=== PATIENT | male | born 1965 | race Two or more races ===

== ENCOUNTER 2024-04-11 17:36 | Emergency (ER) | payer MEDICAID, OTHER ==
[~2024-04-11] VITALS: Ht 177.8 cm; Wt 99.0 kg
--- NOTE | 2024-04-11 18:25 | ECG ---
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
[2024-04-11] MEDS ORDERED: DEXTROSE (50%) 50ML SYRG IV PRN (18:30)
--- NOTE | 2024-04-11 18:46 | ED.PDOC ---
History of Present Illness HPI Comments Cally Ibrahim is a 59-year-old male patient who presents to ED with chief complaint of dizziness associated with hypertension (210 mmHg), dyspnea in variable functional class and vomiting. Patient says that he is noncompliant with medication, has not been taking antihypertensive medication. He lives in assisted living facility, where they measures his blood pressure. Denies palpitation, syncope, fever, chills, chest pain, nausea, diarrhea, abdominal pain, dysuria, recent travel, sick contacts and motor or sensory deficits. Past medical history: Hypertension, diabetes, dyslipidemia, sick strokes with abnormal gait sequela walker/cane to ambulate, asthma, questionable BPH, forearm injury status postop, osteoarthritis Surgical history: Abdominal surgery due to forearm injury Family history: Mother has hypertension Social history: Lives in assisted living facility in [place]. He is a current smoker (approximately 60 pack-year history of smoking) currently he smokes five cigarettes a day. Ex ethanol abuse (12 beers per day) he stopped two years ago. Allergies: Denies Home medication metformin, aspirin, atorvastatin, does not recall antihypertensive medication. Chief Complaint: Dizziness Time Seen by MD: 17:43 Allergies: Coded Allergies: NO KNOWN ALLERGIES (Unverified , 04/11/24) Physical Exam General Appearance: No Apparent Distress, Normal HEENT: Normal ENT Inspection, Pharynx Normal, TMs Normal Neck: Full Range of Motion, Non-Tender, Normal, Normal Inspection Respiratory: Chest Non-Tender, Lungs Clear, No Accessory Muscle Use, No Respiratory Distress, Normal Breath Sounds Cardiovascular: No Edema, No JVD, No Murmur, No Gallop, Normal Peripheral Pulses, Regular Rate/Rhythm Breast Exam: Deferred Gastrointestinal: No Organomegaly, Non Tender, No Pulsatile Mass, Normal Bowel Sounds, Soft Genitalia: Deferred Pelvic: Deferred Rectal: Deferred Extremities: No calf tenderness, Normal capillary refill, Normal inspection, Normal range of motion, Non-tender, No pedal edema Neurologic: Alert, guest services II-XII nml as Tested, No Motor Deficits, Normal Affect, Normal Mood, No Sensory Deficits Cerebellar Function: Normal Reflexes: Normal Skin: Dry, Normal Color, Warm Lymphatic: No Adenopathy Was a procedure done? Was a procedure done?: No EKG EKG : Comments Sinus tachycardia with probable left atrial hypertrophy, flattened lateral T- waves Differential Dx Considerations may include: Hypertensive urgency, noncompliance, stroke, migraine X-Ray, Labs, Meds, VS Vital Signs Date Time Temp Pulse Resp B/P (MAP) Pulse Ox O2 Delivery O2 Flow Rate FiO2 04/11/24 20:50 98.4 97 16 176/119 (138) 94 98.4 04/11/24 20:50 97 16 94 Room Air* 0 21 04/11/24 19:01 172/114 04/11/24 18:38 98.6 95 20 186/126 (146) 98 04/11/24 18:19 134 Lab Test 04/11/24 21:17 04/11/24 19:15 04/11/24 18:57 04/11/24 18:10 Range/Units Urine Color Light-yellow Yellow Urine Clarity Clear Clear Urine pH 5.5 5.0-9.0 Urine Specific [place] 1.022 1.001-1.035 Urine Protein Negative Negative Urine Ketones Negative Negative Urine Blood Negative Negative /uL Urine Nitrite Negative Negative Urine Bilirubin Negative Negative Urine Urobilinogen 2 H Negative mg/dL Urine Leukocyte Esterase Negative Negative /uL Urine RBC 1 0 - 3 /hpf Urine WBC 1 0 - 3 /hpf Urine Squamous Epithelial Cells Few <5 /hpf Urine Bacteria None seen None Seen /hpf Urine Mucus Few None Seen Urine Glucose 3+ H Normal mg/dL Urine Opiates Screen Neg NEGATIVE Urine Fentanyl Screen Neg NEGATIVE Urine Barbiturates Screen Neg NEGATIVE Urine Phencyclidine Screen Neg NEGATIVE Urine Amphetamines Screen Neg NEGATIVE Urine Benzodiazepines Screen Neg NEGATIVE Urine Cocaine Screen Neg NEGATIVE Urine Cannabinoids Screen Neg NEGATIVE White Blood Count 10.2 4.4-10.8 10^3/uL Red Blood Count 4.70 4.5-5.90 10^6/uL Hemoglobin 13.6 13.5-17.5 g/dL Hematocrit 41.2 41.0-53.0 % Mean Corpuscular Volume 87.7 80.0-100.0 fL Mean Corpuscular Hemoglobin 29.1 28.0-32.0 pg Mean Corpuscular Hemoglobin Concent 33.1 32.0-36.0 g/dL Red Cell Distribution Width 13.4 11.8-14.3 % Platelet Count 279 140-450 10^3/uL Mean Platelet Volume 7.6 6.9-10.8 fL Neutrophils (%) (Auto) 62.8 37.0-80.0 % Lymphocytes (%) (Auto) 29.8 10.0-50.0 % Monocytes (%) (Auto) 6.2 0.0-12.0 % Eosinophils (%) (Auto) 0.7 0.0-7.0 % Basophils (%) (Auto) 0.5 0.0-2.0 % Neutrophils # (Auto) 6.4 1.6-8.6 10 ^3/uL Lymphocytes # (Auto) 3.0 0.4-5.4 10 ^3/uL Monocytes # (Auto) 0.6 0-1.3 10 ^3/uL Eosinophils # (Auto) 0.1 0-0.8 10 ^3/uL Basophils # (Auto) 0.1 0-0.2 10 ^3/uL Nucleated Red Blood Cells 0.0 % Prothrombin Time 11.1 9.3-11.8 sec Prothrombin Time INR 1.05 0.9-1.15 Activated Partial Thromboplast Time 25.6 24.5-34.5 SEC Sodium Level 140 136-145 mmol/L Potassium Level 3.4 L 3.5-5.1 mmol/L Chloride Level 104 98-107 mmol/L Carbon Dioxide Level 29 20-31 mmol/L Anion Gap 7 5-15 Blood Urea Nitrogen 15 9-23 mg/dL Creatinine 1.25 0.700-1.30 mg/dL Glomerular Filtration Rate Calc 66 >90 mL/min BUN/Creatinine Ratio 12.0 10.0-20.0 Serum Glucose 132 H 74-106 mg/dL Lactic Acid Level 1.4 0.4-2.0 mmol/L Calcium Level 10.1 8.7-10.4 mg/dL Total Bilirubin 0.7 0.2-1.0 mg/dL Aspartate Amino Transferase (AST) 11 L 13-40 U/L Alanine Aminotransferase (ALT) 17 7-40 U/L Alkaline Phosphatase 87 46-116 U/L Total Protein 7.5 5.7-8.2 g/dL Albumin 4.6 3.2-4.8 g/dL Thyroid Stimulating Hormone (TSH) 1.48 0.55-4.78 uIU/mL POC Glucose 139 H 156 H 70-106 mg/dl Current Medications Medications (Trade) Dose Ordered Sig/Don Route Start Time Stop Time Status Last Admin Amlodipine Besylate (Norvasc Tablet) 10 mg ONCE ONCE PO 04/11/24 18:30 04/11/24 18:46 DC 04/11/24 19:01 Insulin Human Regular (InsuLIN R) ACHS SC 04/11/24 22:00 04/11/24 19:00 X-Ray, Labs, Meds, VS Comment Reviewed laboratory results, chest x-ray, and urine, all within normal limits. Time of 1ST Reevaluation: 21:33 Reevaluation 1ST: Improved Patient Education/Counseling: Diagnosis, Treatment, Prognosis, Need For Follow Up Family Education/Counseling: Diagnosis, Treatment, Prognosis, Need For Follow Up Departure 1 Departure Time of Disposition: 21:33 Impression: Primary Impression: Hypertensive urgency Disposition: 01 HOME / SELF CARE / HOMELESS Condition: Stable Additional Instructions: Reviewed vital signs, laboratory results, urine analysis and chest x-ray, all within normal limits. Patient responded positively to amlodipine 10 mg p.o. daily. We will indicate amlodipine 10 mg p.o. daily and hydrochlorothiazide 12.5 mg p.o. daily Patient hemodynamically stable, asymptomatic, in condition to be discharged home. Was granted under optimal medical therapy (amlodipine and hydrochlorothiazide), gave her advice on healthy lifestyle habits (avoid tobacco abuse) and follow up with PCP. Critical Care Note Critical Care Time?: No Stability Stability form required: No Heart Score Heart Score: Heart Score Response (Comments) Value History N/A 0 EKG N/A 0 Age N/A 0 Risk Factors N/A 0 Troponin N/A 0 Total 0 BALBIR MARES RESIDENT Apr 11, 2024 18:46
[2024-04-11] MEDS: InsuLIN REG 1unit/0.01ml Soln (100units/ml) SC SCH (19:00)
[2024-04-11] MEDS: amLODIPine BESYLATE 5 MG TAB PO ONE (19:01)
--- NOTE | 2024-04-11 19:02 | DVH ---
CHEST RADIOGRAPH Indication: SOB Technique: Single frontal view of the chest was obtained COMPARISON: None FINDINGS: Lines and Tubes: None Lungs: Clear Pleura: No effusion. No pneumothorax. Cardiomediastinal contours: Unremarkable Bones: Unremarkable IMPRESSION: 1. No acute disease.
[2024-04-11 19:28] LABS: Basophils # (auto) 0.1 10 ^3/uL (0-0.2); Basophils % (auto) 0.5 % (0.0-2.0); Eosinophils # (auto) 0.1 10 ^3/uL (0-0.8); Eosinophils % (auto) 0.7 % (0.0-7.0); Hematocrit 41.2 % (41.0-53.0); Hemoglobin 13.6 g/dL (13.5-17.5); Lymphocytes % (auto) 29.8 % (10.0-50.0); Mean Corpuscular Hemoglobin 29.1 pg (28.0-32.0); Mean Corpuscular Hgb Conc. 33.1 g/dL (32.0-36.0); Mean Corpuscular Volume 87.7 fL (80.0-100.0); Monocytes # (auto) 0.6 10 ^3/uL (0-1.3); Monocytes % (auto) 6.2 % (0.0-12.0); Neutrophils # (auto) 6.4 10 ^3/uL (1.6-8.6); Neutrophils % (auto) 62.8 % (37.0-80.0); Platelet Count (auto) 279 10^3/uL (140-450); Red Cell Distribution Width 13.4 % (11.8-14.3); White Blood Cell 10.2 10^3/uL (4.4-10.8)
[2024-04-11 19:55] LABS: INR 1.05 (0.9-1.15); Partial Thromboplastin Time 25.6 SEC (24.5-34.5); Prothrombin Time 11.1 sec (9.3-11.8)
[2024-04-11 20:19] LABS: Alanine Aminotransferase 17 U/L (7-40); Albumin 4.6 g/dL (3.2-4.8); Alkaline Phosphatase 87 U/L (46-116); Anion Gap 7 (5-15); Bilirubin, Total 0.7 mg/dL (0.2-1.0); Blood Urea Nitrogen 15 mg/dL (9-23); Calcium 10.1 mg/dL (8.7-10.4); Carbon Dioxide 29 mmol/L (20-31); Chloride 104 mmol/L (98-107); Sodium 140 mmol/L (136-145); Total Protein 7.5 g/dL (5.7-8.2)
[2024-04-11 20:23] LABS: Aspartate Aminotransferase 11 U/L (13-40); Glucose 132 mg/dL (74-106); Potassium 3.4 mmol/L (3.5-5.1)
[2024-04-11 20:50] VITALS: PULSE 97; RESP 16; TEMP 98.4; O2SAT 94
[2024-04-11] MEDS: POTASSIUM EFFERVESENT TAB 25 MEQ PO ONE (21:01)
[2024-04-11 21:13] LABS: Urine Bacteria None Seen /hpf (None Seen); Urine Blood Negative /uL (Negative); Urine Clarity Clear (Clear); Urine Color Light-Yellow (Yellow); Urine Mucus FEW (None Seen); Urine Protein, UAD Negative (Negative); Urine Specific Gravity 1.022 (1.001-1.035); Urine Squamous Epithelial Cell FEW /hpf (<5); Urine Urobilinogen 2 mg/dL (Negative); Urine WBC 1 /hpf (0 - 3); Urine pH 5.5 (5.0-9.0)
[2024-04-11 21:20] LABS: Amphetamine Screen, Urine Neg (NEGATIVE); Barbiturate Scree,Urine Neg (NEGATIVE); Benzodiazephine Screen, Urine Neg (NEGATIVE); Cannabinoid Screen, Urine Neg (NEGATIVE); Cocaine Screen, Urine Neg (NEGATIVE); Opiate Scree,Urine Neg (NEGATIVE); Phencyclidine Screen, Urine Neg (NEGATIVE)
[2024-04-11 21:29] VITALS: BP 168/104; PULSE 88; RESP 16; O2SAT 96
[2024-04-11] MEDS ORDERED: HYDR12.55 PO (21:37)
[2024-04-11] MEDS ORDERED: AMLO1TAB22 PO (21:37)
[2024-04-11] MEDS ORDERED: ACCU-CHEK COMFORT CURVE STRIP VI SCH (22:00)
== END 2024-04-11 21:40 | disposition home or self-care (01) ==
LOC: ER 17:36
DX: I16.0 Hypertensive urgency (principal); E11.9 Type 2 diabetes mellitus without complications; E78.5 Hyperlipidemia, unspecified; J45.909 Unspecified asthma, uncomplicated; F17.210 Nicotine dependence, cigarettes, uncomplicated; Z98.890 Other specified postprocedural states; Z88.6 Allergy status to analgesic agent; Z79.899 Other long term (current) drug therapy
CPT/HCPCS: 36415; 71045; 80053; 80307; 81001; 82962; 83605; 84443; 85025; 85610; 85730; 93005; 96372; 99285; J1815

== ENCOUNTER 2024-06-02 11:24 | Emergency (ER) | payer MEDICAID ==
[~2024-06-02] VITALS: Ht 177.8 cm; Wt 96.0 kg
[~2024-06-02 11:24] MED LIST: AMLO1TAB22 PO; HYDR12.55 PO
--- NOTE | 2024-06-02 11:45 | ECG ---
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
[2024-06-02 12:02] LABS: Basophils # (auto) 0 10 ^3/uL (0-0.2); Basophils % (auto) 0.5 % (0.0-2.0); Eosinophils # (auto) 0 10 ^3/uL (0-0.8); Eosinophils % (auto) 0.3 % (0.0-7.0); Hematocrit 41.1 % (41.0-53.0); Hemoglobin 13.3 g/dL (13.5-17.5); Lymphocytes % (auto) 21.7 % (10.0-50.0); Mean Corpuscular Hemoglobin 28.7 pg (28.0-32.0); Mean Corpuscular Hgb Conc. 32.3 g/dL (32.0-36.0); Monocytes # (auto) 0.4 10 ^3/uL (0-1.3); Monocytes % (auto) 4.2 % (0.0-12.0); Neutrophils # (auto) 6.8 10 ^3/uL (1.6-8.6); Neutrophils % (auto) 73.3 % (37.0-80.0); Platelet Count (auto) 267 10^3/uL (140-450); Red Blood Cells 4.62 10^6/uL (4.5-5.90); White Blood Cell 9.2 10^3/uL (4.4-10.8)
[2024-06-02 12:22] LABS: Chloride 103 mmol/L (98-107); Potassium 3.8 mmol/L (3.5-5.1); Sodium 138 mmol/L (136-145)
[2024-06-02 12:23] LABS: Anion Gap 10 (5-15); Carbon Dioxide 25 mmol/L (20-31)
[2024-06-02 12:28] LABS: Blood Urea Nitrogen 10 mg/dL (9-23); Glucose 303 mg/dL (74-106)
[2024-06-02 12:56] VITALS: PULSE 87; RESP 15; TEMP 97.6; O2SAT 95
[2024-06-02] MEDS: HYDROcodone-ACET 10/325MG TAB PO ONE (13:09)
--- NOTE | 2024-06-02 13:38 | DVH ---
Procedure: CT CHEST WITHOUT CONTRAST Reason for study/Clinical History: Chest wall pain s/p fall trauma Comparison Study: Chest radiograph performed 04/11/2024. Exam Date: 06/02/2024 12:57 PM TECHNIQUE: Multidetector CT of the chest was performed from the lung apices to the upper abdomen with out the use of intravenous contract. Axial, coronal and sagittal multiplanar reformats were performed . Radiation Dose Information: CT Dose: CTDI volume is 14.97 mGy. Dose-length product is 535.18 mGy*cm The dose indicators for CT are the volume Computed Tomography (CT) Dose Index (CTDIvol) and the Dose Length Product (DLP), and are measured in units of mGy and mGy-cm, respectively. These indicators are not patient dose, but values generated from the CT scanner acquisition factors. The report includes radiation exposure data for exposures received during this examination. FINDINGS: Lower neck: Enlarged multinodular thyroid. Lungs /pleura: No focal consolidation, pleural effusion or pneumothorax. Central airways: Patent. Heart/Vascular Structures: Normal heart size. No pericardial effusion. Normal caliber thoracic aorta and main pulmonary artery. Lymph Nodes: No adenopathy Musculoskeletal: No acute osseous abnormality. Soft tissues: Bilateral gynecomastia. Upper abdomen: Limited portions of the upper abdomen shows low attenuating liver parenchyma. IMPRESSION: 1. No acute intrathoracic abnormality. 2. Enlarged multinodular thyroid. Recommend further evaluation with thyroid ultrasound. 3. Hepatic steatosis. 4. Gynecomastia. Radiation optimization: All CT scans at this facility use at least one of these dose optimization jayro hniques: automated exposure control mA and/or kV adjustment per patient size (includes targeted exam s where dose is matched to clinical indication) or iterative reconstruction.
--- NOTE | 2024-06-02 15:14 | ED.PDOC ---
Back pain HPI HPI Comments 59y M who presents to the ED for chief complaint of chest wall pain. Pt states he is resident at care facility for substance abuse and was standing outside in smoking area and had mechanical onto wooden chair which hit his chest wall area on the L side. Pt states he had history of 6 prior strokes and states he has residual equilibrium deficits and states he lost is equilibrium with mechanical fall onto wooden chair. Pt states he has been having L sided chest wall pain since and states he has been having pain with taking deep breaths but otherwise denies any head injury or associated loss of consciousness. Pt in the ED, states the pain is 10/10, constant, non-radiating, with no associated exacerbating or relieving factors. Pt otherwise denies shortness of breath, diaphoresis, palpitations, nausea, vomiting, cough, chills, headache or dizziness. Pt in the ED, states he has history of DM, HTN, and prior PA. Pt states due to chest wall injury suffered today, he did not take any of his medications and came to the ED instead. Pt in the ED, has elevated blood pressure of 198/113 but otherwise has temp of 98.3 F and RR of 18 and 02 sat of 95% on room air. Chief Complaint: Chest Wall Injury Time Seen by MD: 15:09 Primary Care Provider: UNKNOWN Reviewed Notes: Medications, Allergies Allergies: Coded Allergies: NO KNOWN ALLERGIES (Unverified , 04/11/24) Home Meds Active Scripts Hydrochlorothiazide (Hydrochlorothiazide) 12.5 Mg Tab, 12.5 MG PO DAILY for 30 Days, #30 TAB Prov:BALBIR MARES RESIDENT 04/11/24 Amlodipine Besylate (Amlodipine Besylate) 5 Mg Tab, 1 TAB PO DAILY for 30 Days, #30 TAB 5 Refills Prov:BALBIR MARES RESIDENT 04/11/24 Information Source: Patient Mode of Arrival: Wheelchair Brought in by: friend Past Medical History PAST MEDICAL HISTORY: CVA, DM, HTN, PA Surgical History: Unknown Family History Family History: Unknown Social History Smoker: Unknown Alcohol: Unknown Drugs: Unknown Lives In: Assisted Care Constitutional: denies: chills, diaphoresis, fatigue, fever, malaise, sweats, weakness, others EENTM: denies: blurred vision, double vision, ear bleeding, ear discharge, ear drainage, ear pain, ear ringing, eye pain, eye redness, hearing loss, mouth pain, mouth swelling, nasal discharge, nose bleeding, nose congestion, nose pain, photophobia, tearing, throat pain, throat swelling, voice changes, others Respiratory: denies: cough, hemoptysis, orthopnea, SOB at rest, shortness of breath, SOB with excertion, stridor, wheezing, others Cardiovascular: reports: others (chest wall pain); denies: chest pain, dizzy spells, diaphoresis, Dyspnea on exertion, edema, irregular heart beat, left arm pain, lightheadedness, palpitations, PND, syncope Gastrointestinal: denies: abdomen distended, abdominal pain, blood streaked bowels, constipated, diarrhea, dysphagia, difficulty swallowing, hematemesis, melena, nausea, poor appetite, poor fluid intake, rectal bleeding, rectal pain, vomiting, others Genitourinary: denies: burning, dysuria, flank pain, frequency, hematuria, incontinence, penile discharge, penile sore, pain, testicle pain, testicle swelling, urgency, others Neurological: denies: dizziness, fainting, headache, left sided numbness, left sided weakness, numbness, paresthesia, pre-existing deficit, right sided numbness, right sided weakness, seizure, speech problems, tingling, tremors, weakness, others Musculoskeletal: denies: back pain, gout, joint pain, joint swelling, muscle pain, muscle stiffness, neck pain, others Integumetry: denies: bruises, change in color, change in hair/nails, dryness, laceration, lesions, lumps, rash, wounds, others Allergic/Immunocompromised: denies: Difficulty Healing, Frequent Infections, Hives, Itching, others Hematologic/Lymphatic: denies: anemia, blood clots, easy bleeding, easy bruising, swollen glands, others Endocrine: denies: excessive hunger, excessive sweating, excessive thirst, excessive urination, flushing, intolerance to cold, intolerance to heat, unexplained weight gain, unexplained weight loss, others Psychiatric: denies: anxiety, bipolar disorder, depression, hopeless, panic disorder, schizophrenia, sleepless, suicidal, others All Other Systems: Reviewed and Negative Physical Exam General Appearance: Mild Distress HEENT: PERRL/EOMI Neck: Full Range of Motion, Non-Tender, Normal Inspection, Supple Respiratory: Lungs Clear, No Accessory Muscle Use, No Respiratory Distress, Normal Breath Sounds, Other (palpation of the L parasternal area and L upper chest wall reproduces the pain) Cardiovascular: No Edema, No JVD, Regular Rate/Rhythm Breast Exam: Deferred Gastrointestinal: Non Tender, Soft Genitalia: Deferred Pelvic: Deferred Rectal: Deferred Extremities: Non-tender, No pedal edema Neurologic: Alert (oriented x 4), Normal Affect, Normal Mood Cerebellar Function: NOT DONE Reflexes: NOT DONE Skin: Dry, Normal Color, Warm Lymphatic: NOT DONE Was a procedure done? Was a procedure done?: No EKG EKG : Comments Sinus rhythm, rate 92, normal intervals, normal axis, normal QRS, inferior lateral T-wave inversion Back Pain Differential Dx Differential Diagnosis: Fracture, Musculoskeletal Pain Other Differential Diagnosis Chest wall contusion, rib fracture, pulmonary contusion, cardiac contusion, PA, angina, chest wall injury, HTN urgency, X-Ray, Labs, Meds, VS Vital Signs Date Time Temp Pulse Resp B/P (MAP) Pulse Ox O2 Delivery O2 Flow Rate FiO2 06/02/24 16:32 87 16 160/90 06/02/24 16:31 87 16 160/90 (113) 96 06/02/24 15:33 91 16 164/112 06/02/24 15:32 162/112 06/02/24 15:23 91 16 162/112 (129) 96 06/02/24 12:56 87 15 95 Room Air* 0 21 06/02/24 12:56 97.6 87 15 188/127 (147) 95 97.6 06/02/24 11:43 92 06/02/24 11:39 98.0 95 16 193/122 (145) 98 Lab Test 06/02/24 15:18 06/02/24 12:46 06/02/24 11:50 Range/Units POC Glucose 324 H 70-106 mg/dl Troponin I High Sensitivity 18 18 </=54 ng/L White Blood Count 9.2 4.4-10.8 10^3/uL Red Blood Count 4.62 4.5-5.90 10^6/uL Hemoglobin 13.3 L 13.5-17.5 g/dL Hematocrit 41.1 41.0-53.0 % Mean Corpuscular Volume 89.0 80.0-100.0 fL Mean Corpuscular Hemoglobin 28.7 28.0-32.0 pg Mean Corpuscular Hemoglobin Concent 32.3 32.0-36.0 g/dL Red Cell Distribution Width 14.0 11.8-14.3 % Platelet Count 267 140-450 10^3/uL Mean Platelet Volume 7.8 6.9-10.8 fL Neutrophils (%) (Auto) 73.3 37.0-80.0 % Lymphocytes (%) (Auto) 21.7 10.0-50.0 % Monocytes (%) (Auto) 4.2 0.0-12.0 % Eosinophils (%) (Auto) 0.3 0.0-7.0 % Basophils (%) (Auto) 0.5 0.0-2.0 % Neutrophils # (Auto) 6.8 1.6-8.6 10 ^3/uL Lymphocytes # (Auto) 2.0 0.4-5.4 10 ^3/uL Monocytes # (Auto) 0.4 0-1.3 10 ^3/uL Eosinophils # (Auto) 0 0-0.8 10 ^3/uL Basophils # (Auto) 0 0-0.2 10 ^3/uL Nucleated Red Blood Cells 0.0 % Sodium Level 138 136-145 mmol/L Potassium Level 3.8 3.5-5.1 mmol/L Chloride Level 103 98-107 mmol/L Carbon Dioxide Level 25 20-31 mmol/L Anion Gap 10 5-15 Blood Urea Nitrogen 10 9-23 mg/dL Creatinine 1.11 0.700-1.30 mg/dL Glomerular Filtration Rate Calc 77 >90 mL/min BUN/Creatinine Ratio 9.0 L 10.0-20.0 Serum Glucose 303 H 74-106 mg/dL Calcium Level 10.0 8.7-10.4 mg/dL B-Type Natriuretic Peptide 77.08 0-100 pg/mL Current Medications Medications (Trade) Dose Ordered Sig/Don Route Start Time Stop Time Status Last Admin Acetaminophen/ Hydrocodone Bitart ([place] 10/325MG Tab) 1 tab ONCE ONCE PO 06/02/24 13:00 06/02/24 13:01 DC 06/02/24 13:09 Insulin Human Regular (InsuLIN R) 8 units ONCE ONCE IV 06/02/24 14:30 06/02/24 14:36 DC 06/02/24 15:33 Morphine Sulfate 4 mg ONCE ONCE IV 06/02/24 15:00 06/02/24 15:01 DC 06/02/24 15:33 Ondansetron HCl (Zofran) 4 mg ONCE ONCE IV 06/02/24 15:00 06/02/24 15:01 DC 06/02/24 15:32 Hydralazine HCl (Apresoline Injection) 10 mg ONCE ONCE IV 06/02/24 15:00 06/02/24 15:01 DC 06/02/24 15:32 [place] [id number] Ph: [phone] DIAGNOSTIC IMAGING Diagnostic Imaging Report : [id number] Signed PATIENT: BOGDAN PINO ACCT: [id number] UNIT: [id number] : 1965 LOC: ER ROOM / BED: / AGE / SEX: 59 / M ADM STATUS: REG ER SERVICE 1253 ORDERING PHYSICIAN: KHALIF KAUR MD PROCEDURE(s): CX2CT - CHEST WITHOUT CONTRAST REASON: chest wall pain s/p fall trauma ORDER NUMBER(s): [id number], ACCESSION NUMBER(s): [id number] Procedure: CT CHEST WITHOUT CONTRAST Reason for study/Clinical History: Chest wall pain s/p fall trauma Comparison Study: Chest radiograph performed 04/11/2024. Exam Date: 06/02/2024 12:57 PM TECHNIQUE: Multidetector CT of the chest was performed from the lung apices to the upper abdomen without the use of intravenous contract. Axial, coronal and sagittal multiplanar reformats were performed. Radiation Dose Information: CT Dose: CTDI volume is 14.97 mGy. Dose-length product is 535.18 mGy*cm The dose indicators for CT are the volume Computed Tomography (CT) Dose Index (CTDIvol) and the Dose Length Product (DLP), and are measured in units of mGy and mGy-cm, respectively. These indicators are not patient dose, but values generated from the CT scanner acquisition factors. The report includes radiation exposure data for exposures received during this examination. FINDINGS: Lower neck: Enlarged multinodular thyroid. Lungs /pleura: No focal consolidation, pleural effusion or pneumothorax. Central airways: Patent. Heart/Vascular Structures: Normal heart size. No pericardial effusion. Normal caliber thoracic aorta and main pulmonary artery. Lymph Nodes: No adenopathy Musculoskeletal: No acute osseous abnormality. Soft tissues: Bilateral gynecomastia. Upper abdomen: Limited portions of the upper abdomen shows low attenuating liver parenchyma. IMPRESSION: 1. No acute intrathoracic abnormality. 2. Enlarged multinodular thyroid. Recommend further evaluation with thyroid ultrasound. 3. Hepatic steatosis. 4. Gynecomastia. Radiation optimization: All CT scans at this facility use at least one of these dose optimization techniques: automated exposure control mA and/or kV adjustment per patient size (includes targeted exams where dose is matched to clinical indication) or iterative reconstruction. ATED BY: KOLE PINO MD DICTATED DATE/TIME: 06/02/241335 SIGNED BY: KOLE PINO MD SIGNED DATE/TIME: 06/02/241335 CC: X-Ray, Labs, Meds, VS Comment 59-year-old male with a history of CVA x6, hypertension, diabetes, CAD and PA complaining of chest wall pain after losing his balance and falling, hitting his left anterior chest on a chair Vitals remarkable for BP 188/127. Of note, patient states he did not take any of his medications today including blood pressure medication Exam remarkable for left parasternal and upper left chest wall tenderness to palpation. No bruising or crepitus. Rhythm strip independently interpreted by me: Sinus rhythm, rate 92, no ectopy. CT chest IMPRESSION: 1. No acute intrathoracic abnormality. 2. Enlarged multinodular thyroid. Recommend further evaluation with thyroid ultrasound. 3. Hepatic steatosis. 4. Gynecomastia. CBC unremarkable, metabolic panel remarkable for glucose 303, BNP and 2 serial troponins negative Patient treated with the following in the ED: [place] 10/325 mg p.o. which did not relieve his pain, morphine 4 mg IV, Zofran 4 mg IV, hydralazine 10 mg IV, regular insulin 8 units IV On re-evaluation, patient states pain has improved and he wants to go home. Vitals were stable, including blood pressure which is now 160/90. Accu-Chek was 176 after IV insulin. Hospitalization was considered, however patient had rapid improvement of symptoms with treatment in the ED, and I no longer feel hospitalization is necessary. Patient now appears stable for discharge with close outpatient follow-up with his primary physician. Rx ibuprofen, [place] Time of 1ST Reevaluation: 15:40 Reevaluation 1ST: Unchanged Time of 2ND Reevaluation: 17:07 Reevaluation 2ND: Improved Patient Education/Counseling: Diagnosis, Treatment Family Education/Counseling: Diagnosis, Treatment Additional Information -Reviewed patient's previous visit(s): - The following tests were ordered, and results were reviewed by me: cbc, tropx 2, ekg x1, bmp, ct chest w/o contrast, bnp - I reviewed and agreed with the following test results read by other provider: radiologist - I discussed treatments and results with medical personnel and: patient and friend Comprehensive systems review obtained and negative except for what is stated in the HPI. Departure 1 Departure Time of Disposition: 17:07 Impression: Primary Impression: Chest wall contusion Qualified Codes: S20.212A - Contusion of left front wall of thorax, initial encounter Additional Impression: Accelerated hypertension Disposition: HOME / SELF CARE / HOMELESS Condition: Stable Additional Instructions: Your blood tests, including screening test for heart attack and heart failure, were unremarkable. Your chest CT was unremarkable for any serious injury. I have prescribed pain medications for you to take at home. Resume your regular medications as directed. Follow-up with your primary doctor in 1-2 days. Return to ER for persistent or worsening symptoms. e-Prescriptions Hydrocodone-Acetaminophen (Hydrocodone Bitartrate/AC 10-325 mg) 1 Tab Tab 1 TAB PO Q6HP PRN, #20 TAB prn breakthrough pain Prov: KHALIF KAUR MD 06/02/24 Ibuprofen Micronized (Ibuprofen) 800 Mg Tab 800 MG PO Q8HP PRN, #30 TAB prn pain, take with food Prov: KHALIF KAUR MD 06/02/24 Discharged With: Friend Critical Care Note Critical Care Time?: No Stability Stability form required: No Heart Score Heart Score: Heart Score Response (Comments) Value History Slightly Suspicious [address]-Deviation 2 Age 45-64 1 Risk Factors >3 or Hx ASHD 2 Troponin Normal limit 0 Total 5 I personally scribed for KHALIF KAUR MD ([facility]) on 06/02/24 at 15:14. Electronically submitted by Joseline Maddox ([email or web address]). KHALIF KAUR MD Jun 02, 2024 15:14
[2024-06-02] MEDS: hydrALAZINE HCL 20 MG/ML VL IV ONE (15:32)
[2024-06-02] MEDS: ONDANSETRON HCL 4 MG/2 ML VIAL IV ONE (15:32)
[2024-06-02] MEDS: MORPHINE SULFATE 4 MG/ML SYR/VIAL IV ONE (15:33)
[2024-06-02] MEDS: InsuLIN REG 1unit/0.01ml Soln (100units/ml) IV ONE (15:33)
[2024-06-02 16:31] VITALS: O2SAT 96
[2024-06-02 16:32] VITALS: BP 160/90; PULSE 87; RESP 16
[2024-06-02] MEDS ORDERED: IBUP-1455 PO (17:09)
[2024-06-02] MEDS ORDERED: HYDR-4798 PO (17:09)
== END 2024-06-02 17:20 | disposition home or self-care (01) ==
LOC: ER 11:24
DX: S20.212A Contusion of left front wall of thorax, initial encounter (principal); I10 Essential (primary) hypertension; E11.9 Type 2 diabetes mellitus without complications; I25.2 Old myocardial infarction; Z86.73 Personal history of transient ischemic attack (TIA), and cerebral infarction without residual deficits; Z79.899 Other long term (current) drug therapy; W22.03XA Walked into furniture, initial encounter; Y93.89 Activity, other specified; Y92.89 Other specified places as the place of occurrence of the external cause; Y99.8 Other external cause status
CPT/HCPCS: 36415; 71250; 80048; 82947; 83880; 84484; 85025; 93005; 96374; 96375; 99285; J0360; J1815; J2270; J2405; 82962